=== PATIENT | female | born 1955 | race Caucasian/White ===

== ENCOUNTER 2018-03-14 19:50 | Emergency (ER) | payer OTHER ==
[~2018-03-14] VITALS: Ht 170.1 cm; Wt 59.0 kg
[~2018-03-14 19:50] MED LIST: MOTRIN800 MG PO; TOPROL XL50 MG PO
[2018-03-14] MEDS ORDERED: CEFADROXIL500 M1 PO (20:03)
== END 2018-03-14 20:10 | disposition home or self-care (01) ==
LOC: ED 19:50
DX: S61.211A Laceration without foreign body of left index finger without damage to nail, initial encounter (principal); W26.0XXA Contact with knife, initial encounter; Y93.89 Activity, other specified; Y92.89 Other specified places as the place of occurrence of the external cause; Y99.8 Other external cause status